=== PATIENT | female | born 1965 | race Native Hawaiian/Other Pacific Islander ===

== ENCOUNTER 2017-11-15 06:40 | Day surgery (SDC) | payer MEDICAID ==
[2016-07-13 08:49] VITALS: BMI 30.9
[2017-11-15] MEDS ORDERED: ceFAZolin 1 gm in NS 2 GM/200 ML BAG IVPB ONE (14:00)
[2017-11-15] MEDS ORDERED: ISOSULFAN BLUE 10 MG/ML ML SC ONE (14:00)
[2017-11-15] MEDS ORDERED: Bupivacaine HCl 0.25% PF (30 ml) Inj ONE (14:01)
[2017-11-15] MEDS ORDERED: Lidocaine/Epinephrine 1% 1:100000 10 ML IJ ONE (14:01)
[2017-11-15] MEDS ORDERED: Propofol 10 mg/ml Inj (20 ML) ONE ×2 (14:15→14:27)
[2017-11-15] MEDS ORDERED: Midazolam 2 MG/2 ML VIAL ONE (14:15)
[2017-11-15] MEDS ORDERED: HYDROmorphone 0.5 mg/0.5 ml ISec IVP PRN (14:45)
[2017-11-15] MEDS ORDERED: Morphine 4 MG/ML VIAL ONE (15:00)
[2017-11-15] MEDS ORDERED: Oxycodone/Acetaminophen 5/325 mg Tab PO PRN (16:14)
--- NOTE | 2017-11-15 16:17 | PCM.SURG1 ---
Surgeon's Initial Post Op Note - Surgeon's Notes Surgeon: Dr. Carballo Scrap Cutter: Dr. Rosales Type of Anesthesia: General Endo Pre-Operative Diagnosis: DCIS [place] type Operative Findings: See operative Dictation Post-Operative Diagnosis: DCIS [place] Type Operation Performed: Lumpectomy and sentinal lymp node biopsy Specimen/Specimens Removed: Breast Lesion, Lymph nodes X3 Estimated Blood Loss: EBL {In ML}: 20 Blood Products Given: N/A Drains Used: No Drains Post-Op Condition: Good Date of Surgery/Procedure: 11/15/17 Time of Surgery/Procedure: 16:17
--- NOTE | 2017-11-15 16:20 | CP.SDSHP ---
Same Day Surgery H & P - History Proposed Procedure: H&P in paper chart - Allergies Allergies: Allergies niacin Allergy (Intermediate, Verified 11/06/17 14:50) RASH Short Stay Discharge - Short Stay Discharge Admitting Diagnosis/Reason for Visit: INTRADUCTAL CARCINOMA IN SITU OF UNSPECIFIED BREAS Disposition: HOME/ ROUTINE Follow-up: 10-14 days in office Instructions: Lumpectomy (DC), [place] Lymph Node Biopsy Additional Instructions (Diet, Activity): Don't Shower for 5 days no soaking, You have absorbable sutures as well as surgical tape over your wound do not remove they will fall off on their own the shower. Remove dressing when you shower. Take antibiotics as directed on label. Take motrin for pain. If you deveklop fevers chills chest pain or any other new or concerning symptoms call Dr. Schultz office or go to the Emergency room.
[2017-11-15 18:17] VITALS: RESP 16
[2017-11-15 19:05] VITALS: BP 120/59; PULSE 97; TEMP 97.9; O2SAT 96
--- NOTE | 2017-11-16 04:17 | OP ---
PROCEDURE DATE: 11/15/2017 PREOPERATIVE DIAGNOSIS: Right breast ductal carcinoma in situ. POSTOPERATIVE DIAGNOSIS: Right breast ductal carcinoma in situ with 3 cm retroareolar mass. PROCEDURE DONE: 1. Right breast lumpectomy. 2. Right axillary sentinel lymph node biopsy. SURGEON: Carlos Carballo MD. SNUFF GRINDER AND SCREENER: LEONEL Bennett and Bj Rosales, PGY-1 resident. TYPE OF ANESTHESIA: General endotracheal tube anesthesia. ESTIMATED BLOOD LOSS: Around 20 mL. DRAINS: None. PATHOLOGY: The axillary sentinel lymph node was sent for the intraoperative frozen and the right breast lumpectomy was sent for the permanent pathology. COMPLICATIONS: None. INTRAOPERATIVE FINDINGS: The patient had right breast mass from the retroareolar region more on the outer side of the right breast and the patient had a negative sentinel lymph node of the right axilla. DESCRIPTION OF PROCEDURE: On intraoperative steps, this is a 52-year-old female who was diagnosed with the right breast DCIS and the patient was consented for right breast lumpectomy and the sentinel lymph node dissection brought to the OR, placed supine on the operating table. After induction of anesthesia, the patient had preoperative nuclear medicine injection for the sentinel lymph node and intraoperative nuclear probe was used to identify the signal and Lymphazurin dye was injected and the massage of the breast was done. The breast was prepped and draped in the usual sterile fashion and the right axillary incision was made after incising the skin and the subcutaneous tissue and the clavipectoral fascia, the axillary fat pad was entered and the two axillary lymph nodes were identified with blue dye as well as the positive nuclear probe signals and both lymph nodes were sent for pathology and now the curvilinear incision was made on the right breast outer side, upper and lower flap was created. The dissection was carried down superiorly, inferiorly, medially, and laterally; and the dissection was carried down deep up to the pectoral muscles and the full right side lump was completely excised with normal breast tissue. The proper hemostasis was achieved. The intraoperative confirmation was done for the negative axillary lymph node and now both wounds were irrigated and both wounds were closed in a two-layer subcu with 2-0 Vicryl, skin with 4-0 Monocryl, and dry sterile dressings were applied. The patient tolerated the procedure well. Count of the instrument and gauze were correct. There was no apparent complications. The patient was extubated in the OR and sent to the Postanesthesia Care Unit in stable condition. Carlos Carballo MD [facility]
--- NOTE | 2017-11-16 13:58 | NM ---
HISTORY: 52Y Year old female with right breast cancer. TECHNIQUE: Multiple injections of 1.1 mCi of 99m Tc filtered sulfur colloid (total volume of 8 ml) were administered into the right periareolar skin and breast tissue. Anterior and oblique projection images of the chest were subsequently obtained. FINDINGS: Faint uptake is appreciated in what appear to be 2 lymph nodes at the right axillary tail/ inferior right axilla with prominent uptake appreciated at the injection site at the right periareolar space. No additional uptake appreciated. IMPRESSION: Uptake is appreciated at the right axillary tail/ inferior axilla in what appear to be 2 likely lymph nodes.
== END 2017-11-15 19:06 | disposition home or self-care (01) ==
LOC: C.SDS 06:40
PROVIDERS: ATTEND Surgery Surgical Critical Care
DX: D05.11 Intraductal carcinoma in situ of right breast (principal); E11.9 Type 2 diabetes mellitus without complications; E78.5 Hyperlipidemia, unspecified; I10 Essential (primary) hypertension
CPT/HCPCS: 19301; 38500; 38900; 78195; 88307; 88342; A9541; J2250; J2270; J2704; J3010